=== PATIENT | male | born 1995 | race Caucasian/White ===

== ENCOUNTER 2018-05-11 21:19 | Emergency (ER) | payer MEDICAID ==
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
[2018-05-11 22:52] VITALS: RESP 18; TEMP 98.6
[2018-05-12 02:20] VITALS: BP 125/72; PULSE 73; O2SAT 100
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
== END 2018-05-12 01:40 | disposition home or self-care (01) ==
LOC: ED 21:19
DX: S16.1XXA Strain of muscle, fascia and tendon at neck level, initial encounter (principal); S29.012A Strain of muscle and tendon of back wall of thorax, initial encounter; V43.52XA Car driver injured in collision with other type car in traffic accident, initial encounter; Y92.410 Unspecified street and highway as the place of occurrence of the external cause; M62.838 Other muscle spasm